=== PATIENT | female | born 1995 | race Two or more races ===

== ENCOUNTER → 2022-06-19 | Outpatient (CLI) | payer OTHER | LOC: M WHC 07:45 | PROVIDERS: ATTEND Physician Assistant | DX: N60.01 Solitary cyst of right breast (principal) ==

== ENCOUNTER → 2022-06-28 | Outpatient (CLI) | payer OTHER ==
[2022-06-28 13:36] VITALS: BP 104/68
== END ==
LOC: M WHCPRO 12:34
PROVIDERS: ATTEND Physician Assistant
DX: N63.10 Unspecified lump in the right breast, unspecified quadrant (principal)

== ENCOUNTER → 2023-01-01 | Outpatient (CLI) | payer OTHER | LOC: M WHC 15:30 | PROVIDERS: ATTEND Physician Assistant | DX: N64.4 Mastodynia (principal) ==